=== PATIENT | female | born 1985 | race Caucasian/White ===

== ENCOUNTER 2020-07-28 13:53 | Emergency (ER) | payer BC, MEDICAID, SELFPAY ==
[2020-07-28 13:57] VITALS: BP 130/74; PULSE 115; RESP 16; TEMP 36.6; O2SAT 100; BMI 21.7
[2020-07-28 14:02] VITALS: BP 130/74; PULSE 115; RESP 16; O2SAT 100
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
--- NOTE | 2020-07-28 14:11 | CT_ITS ---
WS: [id number] CT scan of the thoracic spine. Additional two-dimensional coronal and sagittal reconstruction was per formed. 07/28/2020 Clinical Data: back pain / injury Comparison: None. DLP: 945.[address] scans at [facility] use at least one of these dose optimization techniques: automat ed exposure control; mA and/or kV adjustment per patient size (includes targeted exams where dose is matched to clinical indication); or iterative reconstruction. Findings: No compression fractures are seen. There is minimal anterior osteoarthritic spurring of the lower tho racic vertebral bodies. The spinous processes are in good alignment. The proximal ribs are not remark able. The paravertebral areas are unremarkable. CT/CT thoracic spin wo con* [id number] Impression: 1. Negative for thoracic spine fracture. 2. Minimal anterior osteoarthritic spurring from T5 through T10.
--- NOTE | 2020-07-28 14:11 | CT_ITS ---
WS: [id number] CT cervical spine. Additional two-dimensional coronal and sagittal reconstruction was performed. 07/28 Clinical Data: neck pain Comparison: None. DLP: 319.[address] scans at [facility] use at least one of these dose optimization techniques: automat ed exposure control; mA and/or kV adjustment per patient size (includes targeted exams where dose is matched to clinical indication); or iterative reconstruction. Findings: No compression fractures are seen. The disc heights are normal. The spinous processes are in good ali gnment. The odontoid is unremarkable. There is no prevertebral soft tissue swelling. The soft tissues of the cervical spine and the lung apices are not remarkable. C2-C3: No disc bulge, canal stenosis or foraminal stenosis is seen. C3-C4: No disc bulge, canal stenosis or foraminal stenosis is seen. C4-C5: No disc bulge, canal stenosis or foraminal stenosis is seen. C5-C6: No disc bulge, canal stenosis or foraminal stenosis is seen. C6-C7: No disc bulge, canal stenosis or foraminal stenosis is seen. C7-T1: No disc bulge, canal stenosis or foraminal stenosis is seen. CT/CT cervical spin wo con* [id number] Impression: Negative CT scan of the cervical spine.
[2020-07-28] MEDS: HYDROcodone-acetaminophen 5-325 mg Tablet 1 TAB PO (14:20)
--- NOTE | 2020-07-28 15:22 | PC.NURSE ---
Read and agree with assessment.
== END 2020-07-28 15:15 | disposition home or self-care (01) ==
PROVIDERS: Emergency Provider Nurse Practitioner Family; PCP Nurse Practitioner
DX: S29.012A Strain of muscle and tendon of back wall of thorax, initial encounter (principal); S16.1XXA Strain of muscle, fascia and tendon at neck level, initial encounter; X50.9XXA Other and unspecified overexertion or strenuous movements or postures, initial encounter
CPT/HCPCS: 12345; 72125; 72128; 99281; 99283

== ENCOUNTER → 2021-01-07 11:58 | Outpatient (BNVA) | payer OTHER, SELFPAY | PROVIDERS: PCP Nurse Practitioner; Visit Provider Nurse Practitioner Family | DX: Z20.822 Contact with and (suspected) exposure to COVID-19 (principal) | CPT/HCPCS: 87635 ==

== ENCOUNTER → 2021-03-02 15:59 | Outpatient (BNVA) | payer OTHER, SELFPAY | PROVIDERS: PCP Nurse Practitioner; Visit Provider Obstetrics & Gynecology | DX: Z12.4 Encounter for screening for malignant neoplasm of cervix (principal) | CPT/HCPCS: 88175 ==

== ENCOUNTER → 2021-05-16 13:09 | Outpatient (BNVA) | payer OTHER, BC, SELFPAY | PROVIDERS: PCP Nurse Practitioner; Visit Provider Nurse Practitioner Women's Health | DX: N92.6 Irregular menstruation, unspecified (principal) | CPT/HCPCS: 81025 ==

== ENCOUNTER → 2021-06-19 11:28 | Outpatient (BNVA) | payer OTHER, BC, SELFPAY | PROVIDERS: PCP Nurse Practitioner; Visit Provider Obstetrics & Gynecology | DX: Z34.80 Encounter for supervision of other normal pregnancy, unspecified trimester (principal); E03.9 Hypothyroidism, unspecified | CPT/HCPCS: 80307; 84315; 84439; 84443; 84481; 85027; 86592; 86762; 86803; 86850; 86900; 87086; 87340; 87806 ==

== ENCOUNTER → 2021-07-17 08:10 | Outpatient (BNVA) | payer OTHER, BC, MEDICAID, SELFPAY | PROVIDERS: PCP Nurse Practitioner; Visit Provider Obstetrics & Gynecology | DX: Z86.39 Personal history of other endocrine, nutritional and metabolic disease (principal); Z34.80 Encounter for supervision of other normal pregnancy, unspecified trimester | CPT/HCPCS: 84315; 84443; 87491; 87591 ==

== ENCOUNTER → 2021-08-29 11:48 | Outpatient (BNVA) | payer BC, SELFPAY | PROVIDERS: PCP Nurse Practitioner; Visit Provider Obstetrics & Gynecology | DX: Z34.80 Encounter for supervision of other normal pregnancy, unspecified trimester (principal); R79.89 Other specified abnormal findings of blood chemistry | CPT/HCPCS: 81000; 84443 ==

== ENCOUNTER → 2021-10-29 14:31 | Outpatient (BNVA) | payer BC, MEDICAID, SELFPAY | PROVIDERS: PCP Nurse Practitioner; Visit Provider Obstetrics & Gynecology | DX: Z34.80 Encounter for supervision of other normal pregnancy, unspecified trimester (principal) | CPT/HCPCS: 80307; 81000; 82950; 85027 ==

== ENCOUNTER → 2021-11-06 08:02 | Outpatient (BNVA) | payer BC, MEDICAID, SELFPAY | PROVIDERS: PCP Nurse Practitioner; Visit Provider Obstetrics & Gynecology | DX: Z34.80 Encounter for supervision of other normal pregnancy, unspecified trimester (principal) | CPT/HCPCS: 81000; 82951; 82952 ==

== ENCOUNTER → 2021-11-27 08:19 | Outpatient (BNVA) | payer BC, MEDICAID, SELFPAY | PROVIDERS: PCP Nurse Practitioner; Visit Provider Obstetrics & Gynecology | DX: Z34.80 Encounter for supervision of other normal pregnancy, unspecified trimester (principal) | CPT/HCPCS: 81000 ==

== ENCOUNTER → 2021-12-17 10:09 | Outpatient (BNVA) | payer BC, MEDICAID, SELFPAY | PROVIDERS: PCP Nurse Practitioner; Visit Provider Obstetrics & Gynecology | DX: Z34.80 Encounter for supervision of other normal pregnancy, unspecified trimester (principal) | CPT/HCPCS: 84315; 85025; 87081 ==

== ENCOUNTER 2022-01-07 06:10 | Inpatient (IN) | payer BC, MEDICAID, SELFPAY ==
[2022-01-07] VITALS (78 sets, daily range): BP systolic 98–182; BP diastolic 51–139; PULSE 58–105; RESP 16–18; TEMP 36.3–37.7; O2SAT 89–100; BMI 29.0
[2022-01-07] MEDS: lactated ringers 1,000 ML 999 ML IV ×2 (06:41→12:23)
[2022-01-07 06:47] LABS: Basophils % 0.1 %; Eosinophils # 0.1 10^3/uL (0.0-0.8); Eosinophils % 0.9 %; Hematocrit 33.7 % (37.0-47.0); Hemoglobin 11.4 g/dL (11.5-15.3); Lymphocytes # 0.8 10^3/uL (0.8-4.8); Lymphocytes % 11.2 %; Mean Corpuscular HGB Conc 33.8 g/dL (30.0-36.0); Mean Corpuscular Hemoglobin 30.1 pg (28.0-34.0); Mean Corpuscular Volume 88.9 fl (81-99); Mean Platelet Volume 11.4 fL (7.4-10.4); Monocytes # 0.5 10^3/uL (0.2-0.9); Monocytes % 7.7 %; Neutrophils # 5.35 10^3/uL (1.8-7.7); Neutrophils % 78.9 %; Nucleated Red Blood Cells % 0 %; Platelet Count 178 10^3/cmm (130-400); Red Blood Count 3.79 10^6/uL (4.1-5.3); Red Cell Distribution Width 15.8 % (12.1-15.1); White Blood Count 6.8 10^3/uL (4.0-10.0)
[2022-01-07] MEDS: oxytocin 30 UNIT/500 ML BAG IV (07:22)
--- NOTE | 2022-01-07 12:28 | ANES.PREANE2 ---
Pre-Anesthetic Assessment Height/Weight: Height 1.68 m Weight 81.647 kg Temp Pulse Resp BP 98.6 F 78 16 107/72 01/07/22 11:07 01/07/22 11:46 01/07/22 06:22 01/07/22 11:46 Preop Diagnosis: IUP Epidural Familial anesthetic complications: None Last intake: ice chips Social No alcohol and No tobacco Exam alert, oriented x 3, clear to auscultation bilaterally and regular rate & rhythm Airway Mallampati: Class III Dentition: full Pulmonary None reported CV/HEM None reported None reported Hepatic None reported GI Gastroesophageal Reflux Disease Metabolic None reported Musc/skel None reported Neuropsych None reported Anesthetic Plan ASA status: 2 Risk of > 500 ml blood loss (7ml/kg in children): No Medications/Allergies Home Medications Medication Instructions Recorded Confirmed Last Taken Type vits no.126-ferrous fum 1 tab PO DAILY tab 08/29/21 01/07/22 01/06/22 21:00 History 28 mg iron-folic acid 800 mcg tablet (Classic ) famotidine 20 mg tablet (Pepcid) 20 mg PO BID #60 tab 09/25/21 01/07/22 2 Days Ago Rx ~01/05/22 calcium carbonate 300 mg (750 mg) 300 mg PO BID PRN 10/29/21 01/07/22 Unknown History chewable tablet (Tums E-X) ferrous sulfate 325 mg (65 mg 325 mg PO DAILY #90 tab 10/31/21 01/07/22 01/06/22 09:00 Rx iron) tablet,delayed release Allergies Allergy/AdvReac Type Severity Reaction Status Date / Time metoclopramide [From Reglan] Allergy Mild skin crawls Verified 01/07/22 06:29 metronidazole [From Flagyl] Allergy Mild ADR-Vomiting, Verified 01/07/22 06:29 nausea, diarrhea Current Medications Generic Name Dose Route Start Last Admin Trade Name Freq PRN Reason Stop Dose Admin Oxytocin 30 unit in 500 mls @ 1 mls/hr 01/07/22 06:30 01/07/22 10:39 Pitocin IV 16 milliunit/min .Q24H EMMA 16 mls/hr Titration Protocol 1 MILLIUNIT/MIN PFSH Anesthesia Medical History Anxiety And PTSD--she was diagnosed at the age of 21 and has been on Lexapro and hydroxyzine in the past. She stopped medication earlier this year and states that symptoms are under control. This was managed by her primary care provider. History of hypothyroidism during 5th ; resolved No pertinent past medical history Denies diabetes, asthma, hypertension, seizures, DVT/PE PCP: None Surgical History No pertinent past surgical history Family History Denies family history of Colon cancer Ovarian cancer Diabetes Heart disease Hyperlipidemia Breast cancer Hypertension Uterine cancer Thyroid condition Stroke Female Reproductive History Date of last menstrual period: 07/12/20 : 8 Data Anesthesia : 01/07/22 06:27 Short CBC 01/07/22 Range/Units 06:27 WBC 6.8 (4.0-10.0) 10^3/uL Hgb 11.4 L (11.5-15.3) g/dL Hct 33.7 L (37.0-47.0) % MCV 88.9 (81-99) fl Plt Count 178 (130-400) 10^3/cmm Neut % (Auto) 78.9 % Neut # (Auto) 5.35 (1.8-7.7) 10^3/uL Blood Bank 01/07/22 06:27 Blood Type O Positive Rho(D) Type Positive Antibody Screen Negative Cardiac Studies: No Data to Display
--- NOTE | 2022-01-07 12:45 | P.HPUD_ITS ---
Labor & Delivery H&P Update Date of Procedure: January 07, 2022 Date H&P Performed: 12/31/21 H&P update information: I have reviewed H&P completed within last 30 days, I have examined patient prior to procedure, Changes to prior documentation as noted here and H&P is in [facility] EMR on date indicated Changes to previous documentation: Cervix is 4 to 5 cm and patient is in labor Admission Diagnosis: Preop diagnosis: IUP
--- NOTE | 2022-01-07 13:21 | ANES.PROC ---
Anesthesia Procedures Procedure/Date: 01/07/22 Epidural: Time Out Performed: Yes Consents Signed: Procedure Consent Consent: requested by attending/covering physician, from patient, risks and benefits reviewed and patient agrees to proceed Lumbar Level: L3-L4 Epidural position: sitting Epidural procedure: sterile prep of area, 1% lidocaine to numb the area, 18 g needle, negative for paresthesia passed, neg for paresthesia, test dose given, 1.5% xylocaine 1:200k epi (5 cc), 0.2% Ropivacaine bolus ml (5), placed PCEA, no systemic response, sterile dressing applied, L.U.D. no apparent complications and 0.2% Ropiavacaine @ mls/hr (13) Additional Comments: EVAN just before 4 cm threaded to just before 10 cm
[2022-01-07] MEDS: miSOPROStol 200 mcg Tablet 600 MCG PR (15:24)
--- NOTE | 2022-01-07 15:27 | P.PCNOB_ITS ---
Delivery Note: Date of delivery: January 07, 2022 - PRE-DELIVERY DIAGNOSIS: 36-year-old 8 para 6-0-1-6 at 39 weeks and 3 days Elective induction of labor for term Advanced maternal age GERD on medication Grand multiparity Anxiety-no medication POST-DELIVERY DIAGNOSIS: Vaginal delivery on 01/07/2022 PROCEDURE: Vaginal delivery on 01/07/2022 ANESTHESIA: Epidural anesthesia on 01/07/2022 DELIVERING PHYSICIAN: Sarath Meek FACOG PRE-DELIVERY COURSE: Ms. Parks is a 36-year-old 8 para 6-0-1-6 at 39 weeks and 3 days who presented to labor and delivery at 6 AM on 01/07/2022 for scheduled elective induction of labor for term . She is GBS negative and at an uncomplicated . She had no new concerns on the day of procedure. On examination her cervix was 2 cm 60% and -4 station with no contractions and a category 1 tracing. Induction was started with Pitocin started at 8:30 AM and titrated to a maximum of 20 mIU. With this she started to become uncomfortable and made cervical change to 4 cm at which point an epidural was placed. Patient was comfortable with the epidural. Artificial rupture of membranes was performed at 12:38 PM on 01/07/2022 at which point she was noted to be 5 to 6 cm, 70% and -1 station with clear fluid. She made rapid cervical change after this and was fully dilated at 2:50 PM and set up in lithotomy position ready to push. tracing was category 1. DELIVERY NOTE: She was set up in lithotomy position and was pushing effectively. She was noted to be +3 station and continued pushing well. The head delivered in ADI position, nuchal cord x1 was present and this was reduced without any difficulty. The shoulders and rest of the body followed with her next push. The baby's mouth and nose were suctioned and the baby was placed on the mother's belly. The baby was a little floppy and cord was clamped and cut after about 30 seconds and baby taken to the warmer by the RN. The placenta delivered spontaneously intact with membranes and was discarded. The fundus was noted to be firm and well contracted. The vagina and cervix were inspected and no cervical or sulcal lacerations were noted. The perineum was intact except for a first-degree vaginal laceration which was repaired with 3-0 Vicryl on an SH needle in a continuous interlocking fashion. Good hemostasis and reapproximation was obtained. Baby girl, Winter born at 3 PM on 01/07/2022 with 6/8, weighing 3825 g, 8 pounds 7 ounces, 21 inches long. Placenta was delivered spontaneously intact with membranes at 3:05 AM. Cotyledons were intact , centrally inserted umbilical cord with 3 vessels noted. Estimated blood loss -250 mL. Complications-none, both baby and mother were left to recover in a stable condition. This documentation was created by [employer] director payer software (known for inherent director payer error). Every effort was made to assure accuracy of tra nscription. Any obvious errors or omissions should be clarified with the author of the document. History History History 8 Term 7 Miscarriages/Ectopic 1 0 Living Children 7 Other History: 8, Para 7017 x 7, SAB x 1 1-->: 2005, female, (Jemima) 6 lbs 15 ozs, 40 wks, epidural, vaginal delivery, delivered by Dr Conroy, at [place], [place]. No complications 2-->2007, male,(Jeffery), 7 lbs 3 ozs, 40 wks, vaginal delivery, delivered by Dr Conroy, at [place], [place]. No complications 3-->2008, SAB at 16 wks gestation, no d&c needed 4-->2010, male,(Kathy) 7 lbs 5 ozs, 40 wks, vaginal delivery, delivered by Dr Andrés Arango, at [place], [place]. No complications 5-->2011, male,(Montgomery) 7 lbs 6 ozs, 40 wks, vaginal delivery, delivered by Dr Andrés Arango, at [place], [place]. No complications 6--> 11/26/2015, female(Philly Durant), 7 lbs 11.5 ozs, 39 wks elective induction with pitocin, vaginal delivery, delivered by Dr Yuridia Fallon, at [place], [place]. No complications 7--> 12/21/2018, Male,(Jad) 7lbs 4oz, 38-39 wks, vaginal delivery, epidural, had possible placental accreta diagnosed antepartum however delivery was uncomplicated and she had no problems. Delivered in [place], [place] at [facility]. --->[facility] notes from the doctors in [place] on 10/26/2018 were reviewed--they did an ultrasound on patient at 32 weeks which had low suspicion for placenta accreta however patient desired to deliver [place]. Follow-up ultrasound today continue to show low risk for placenta accreta and patient went on to have a normal vaginal delivery without hemorrhage or any difficulty delivering the placenta 8--> 01/07/2022, female(Winter), 8 pounds 7 ounces,, 39 weeks 3 days vaginal delivery with epidural with Dr. Meek at [facility]. First-degree vaginal tear. 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
[2022-01-07] MEDS: ibuprofen 800 mg tablet PO (20:09)
[2022-01-07] MEDS: docusate sodium 100 mg Capsule PO (20:14)
[2022-01-07] MEDS: lanolin oint 7 gm 1 APPLIC TOPICAL (20:52)
[2022-01-07] MEDS: benzocaine-menthol 78 gm Canister 1 SPRAY TOPICAL (20:53)
[2022-01-07] MEDS: HYDROcodone-acetaminophen 5-325 mg Tablet PO (21:55)
[2022-01-07] MEDS: saline nasal spray 44mL Btl 1 SPRAY NASAL (22:13)
[2022-01-08 00:45] VITALS: BP 115/77; PULSE 82; RESP 16; TEMP 36.8; O2SAT 98
[2022-01-08 04:18] VITALS: BP 110/74; PULSE 88; RESP 16; TEMP 36.9
[2022-01-08] MEDS: HYDROcodone-acetaminophen 5-325 mg Tablet PO ×2 (04:22→13:21)
[2022-01-08 04:35] LABS: Hematocrit 33.4 % (37.0-47.0); Hemoglobin 11.5 g/dL (11.5-15.3); Mean Corpuscular HGB Conc 34.4 g/dL (30.0-36.0); Mean Corpuscular Hemoglobin 30.3 pg (28.0-34.0); Mean Corpuscular Volume 87.9 fl (81-99); Mean Platelet Volume 11.4 fL (7.4-10.4); Platelet Count 173 10^3/cmm (130-400); Red Cell Distribution Width 15.5 % (12.1-15.1); White Blood Count 9.8 10^3/uL (4.0-10.0)
[2022-01-08] MEDS: prenatal vitamin Capsule 1 CAP PO (07:48)
[2022-01-08] MEDS: docusate sodium 100 mg Capsule PO ×2 (07:48→16:51)
[2022-01-08] MEDS: ibuprofen 800 mg tablet PO ×3 (07:48→22:55)
[2022-01-08 08:00] VITALS: BP 109/71; PULSE 72; RESP 16; TEMP 36.6
--- NOTE | 2022-01-08 08:45 | P.PN_ITS ---
Subjective Subjective: SUBJECTIVE: Rhoda is doing okay today. Has quite a bit of lower abdominal cramping especially when she breast-feed. Bleeding is minimal. Denies headaches, visual changes or any other problems. Is just tired and did not sleep well. States that the baby is latching and breast-feeding without any difficulty. Denies nausea, vomiting, fever, chills, shortness of breath and chest pain. OBJECTIVE/PHYSICAL EXAM: Gen.: No acute distress Heart: S1-S2 heard, regular rate and rhythm Lungs: Clear to auscultation bilaterally Abdomen: Soft, fundus firm below umbilicus Legs: No calf tenderness, trace bilateral pitting pedal edema. ASSESSMENT AND PLAN: 36-year-old 8 para 7-0-1-7 status post vaginal delivery, day #1 Continue routine care P.o. pain medication as needed IV can be discontinued after 24 hours as long as vital signs are stable Anticipate discharge home in the next 1 to 2 days as long as she is doing well. Patient may need another day in the hospital to recover from delivery. Encourage ambulation Vitals/I&O/Wt Last Vital Signs Temp 97.7 F 01/08/22 13:45 Pulse 73 01/08/22 13:45 Resp 14 01/08/22 13:45 BP 113/71 01/08/22 13:45 Pulse Ox 98 01/08/22 00:45 01/07/22 01/08/22 01/08/22 22:59 06:59 14:59 Intake Total 1072.633 / 3100.000 Output Total 1650 / 1650 950 / 2600 900 / 900 Balance -577.367 / 1450.000 -950 / 500.000 -900 / -900 Weight last 48 hrs Weight 180 lb Physical Exam Urinary Catheter Management: Grider: Cath Placed During This Visit: yes Urinary Catheter Date of Insertion: 01/07/22 Urinary Catheter Time of Insertion: 12:25 Data : 01/08/22 04:05 Attestations Medical Necessity Statement*: Patient needs to stay in the hospital for 1-2 more days to recover from delivery Coding Level of Care Code Acute Protocol Manager for Destiny Diop
[2022-01-08 13:45] VITALS: BP 113/71; PULSE 73; RESP 14; TEMP 36.5
--- NOTE | 2022-01-08 14:08 | ANE.PACU2 ---
Inpatient post-anesthesia follow up: Airway intact: Yes Vital signs: Temperature 97.7 F Pulse Rate 73 Respiratory Rate 14 Blood Pressure 113/71 Pulse Oximetry 98 Oxygen Delivery Me thod Room Air Oxygen Flow Rate Fraction of Inspir ed Oxygen Hydration adequate: Yes Nausea and vomiting: No Pain level: 1 Mental status: Baseline
[2022-01-08 22:10] VITALS: BP 114/77; PULSE 86; RESP 16; TEMP 36.8; O2SAT 98
[2022-01-09] MEDS: HYDROcodone-acetaminophen 5-325 mg Tablet PO (01:27)
[2022-01-09 04:40] VITALS: BP 123/79; PULSE 90; RESP 16; TEMP 36.8
[2022-01-09] MEDS: docusate sodium 100 mg Capsule PO (08:58)
[2022-01-09] MEDS: ibuprofen 800 mg tablet PO (08:58)
[2022-01-09] MEDS: prenatal vitamin Capsule 1 CAP PO (08:58)
[2022-01-09 10:27] VITALS: BP 96/57; PULSE 77; TEMP 36.9; O2SAT 96
--- NOTE | 2022-01-09 11:58 | PM.OBGYDC ---
Discharge Providers PULP MILL SUPERVISOR Date of Admission: 01/07/22 06:10 Date of Discharge: 01/09/22 Attending Provider at Admission: Sarath Agustin MD Attending Provider at Discharge: Sarath Agustin MD PRE-DELIVERY DIAGNOSIS: 36-year-old 8 para 6-0-1-6 at 39 weeks and 3 days Elective induction of labor for term Advanced maternal age GERD on medication Grand multiparity Anxiety-no medication POST-DELIVERY DIAGNOSIS: Vaginal delivery on 01/07/2022 PROCEDURE: Vaginal delivery on 01/07/2022 ANESTHESIA: Epidural anesthesia on 01/07/2022 DELIVERING PHYSICIAN: Sarath Meek FACOG PRE-DELIVERY COURSE: Ms. Parks is a 36-year-old 8 para 6-0-1-6 at 39 weeks and 3 days who presented to labor and delivery at 6 AM on 01/07/2022 for scheduled elective induction of labor for term .? She is GBS negative and at an uncomplicated .? She had no new concerns on the day of procedure.? On examination her cervix was 2 cm 60% and -4 station with no contractions and a category 1 tracing.? Induction was started with Pitocin started at 8:30 AM and titrated to a maximum of 20 mIU.? With this she started to become uncomfortable and made cervical change to 4 cm at which point an epidural was placed.? Patient was comfortable with the epidural.? Artificial rupture of membranes was performed at 12:38 PM on 01/07/2022 at which point she was noted to be 5 to 6 cm, 70% and -1 station with clear fluid.? She made rapid cervical change after this and was fully dilated at 2:50 PM and set up in lithotomy position ready to push.? tracing was category 1. DELIVERY? NOTE: She was set up in lithotomy position and was pushing effectively. She was noted to be? +3 station and continued pushing well. The head delivered in ADI position, nuchal cord x1 was present and this was reduced without any difficulty. The shoulders and rest of the body followed with her next push. The baby's mouth and nose were suctioned and the baby was placed on the mother's belly.? The baby was a little floppy and cord was clamped and cut after about 30 seconds and baby taken to the warmer by the RN.? The placenta delivered spontaneously intact with membranes and was discarded. The fundus was noted to be firm and well contracted. The vagina and cervix were inspected and no cervical or sulcal lacerations were noted.? The perineum was intact except for a first-degree vaginal laceration which was repaired with 3-0 Vicryl on an SH needle in a continuous interlocking fashion.? Good hemostasis and reapproximation was obtained. Baby girl, Winter born at 3 PM on 01/07/2022 with 6/8, weighing 3825 g, 8 pounds 7 ounces, 21 inches long. Placenta was delivered spontaneously intact with membranes at 3:05 AM. Cotyledons were intact , centrally inserted umbilical cord with 3 vessels noted. Estimated blood loss -250 mL. Complications-none, both baby and mother were left to recover in a stable condition HOSPITAL COURSE: She underwent an uncomplicated vaginal delivery on 01/07/2022. She did well on day 0 and was ambulating well, tolerating regular diet, voiding freely, passing flatus. She was breast-feeding without difficulty and bonding well with her daughter. Pain was well-controlled with by mouth pain medication. She denied nausea, vomiting, fever, chills, shortness of breath, leg pain. She had moderate vaginal bleeding. On day #1 she continued to do well with stable vital signs and stable hemoglobin at 11.5. She continued to do well on day #2 and had no new complaints. Nurses noted that she had a bit of a flat affect and director of social services consult was called. Multiple conversations were had with patient and she stated that she was doing well and felt safe in her relationship and felt safe going back home. public services librarian interviewed patient and she was cleared by them. She denies any depressive symptoms. She was discharged home on day 2 in a stable condition. Warning signs for endometritis, mastitis, DVT/PE were reviewed with her. Post delivery activity restrictions were also reviewed with her at all her questions were answered to her satisfaction. Undecided about what she wants to use for contraception for EXAM AT DISCHARGE: Gen.: No acute distress Heart: S1-S2 heard, regular rate and rhythm Lungs: Clear to auscultation bilaterally Abdomen: Soft, fundus firm below umbilicus, Legs: No calf tenderness, trace bilateral pitting pedal edema. CONDITION AT DISCHARGE: Stable This documentation was created by [employer] plant operator/shift supervisor software (known for inherent plant operator/shift supervisor error). Every effort was made to assure accuracy of plant operator/shift supervisor. Any obvious errors or omissions should be clarified with the author of the document. Primary Care Provider: MILVIA Dougherty Reason for Visit Reason for Visit: INDUCTION OF LABOR Information Peripartum Data: Delivery Method: Vaginal Physical Exam Urinary Catheter Management: Grider: Cath Placed During This Visit: yes Urinary Catheter Date of Insertion: 01/07/22 Urinary Catheter Time of Insertion: 12:25 History History History 8 Term 7 Miscarriages/Ectopic 1 0 Living Children 7 Other History: 8, Para 7017 x 7, SAB x 1 1-->: 2005, female, (Jemima) 6 lbs 15 ozs, 40 wks, epidural, vaginal delivery, delivered by Dr Conroy, at [place], [place]. No complications 2-->2007, male,(Jeffery), 7 lbs 3 ozs, 40 wks, vaginal delivery, delivered by Dr Conroy, at [place], [place]. No complications 3-->2008, SAB at 16 wks gestation, no d&c needed 4-->2010, male,(Kathy) 7 lbs 5 ozs, 40 wks, vaginal delivery, delivered by Dr Andrés Arango, at [place], [place]. No complications 5-->2011, male,([place]) 7 lbs 6 ozs, 40 wks, vaginal delivery, delivered by Dr Andrés Arango, at [place], [place]. No complications 6--> 11/26/2015, female(Philly Durant), 7 lbs 11.5 ozs, 39 wks elective induction with pitocin, vaginal delivery, delivered by Dr Yuridia Fallon, at [place], [place]. No complications 7--> 12/21/2018, Male,(Jad) 7lbs 4oz, 38-39 wks, vaginal delivery, epidural, had possible placental accreta diagnosed antepartum however delivery was uncomplicated and she had no problems. Delivered in [place], [place] at [facility]. --->[facility] notes from the doctors in [place] on 10/26/2018 were reviewed--they did an ultrasound on patient at 32 weeks which had low suspicion for placenta accreta however patient desired to deliver [place]. Follow-up ultrasound today continue to show low risk for placenta accreta and patient went on to have a normal vaginal delivery without hemorrhage or any difficulty delivering the placenta 8--> 01/07/2022, female(Winter), 8 pounds 7 ounces,, 39 weeks 3 days vaginal delivery with epidural with Dr. Meek [place] [facility] [place]. First-degree vaginal tear. Discharge Data Studies Completed and Pending Laboratory Results WBC 9.8 10^3/uL (4.0-10.0) 01/08/22 04:05 RBC 3.80 10^6/uL (4.1-5.3) L 01/08/22 04:05 Hgb 11.5 g/dL (11.5-15.3) 01/08/22 04:05 Hct 33.4 % (37.0-47.0) L 01/08/22 04:05 MCV 87.9 fl (81-99) 01/08/22 04:05 MCH 30.3 pg (28.0-34.0) 01/08/22 04:05 MCHC 34.4 g/dL (30.0-36.0) 01/08/22 04:05 RDW 15.5 % (12.1-15.1) H 01/08/22 04:05 Plt Count 173 10^3/cmm (130-400) 01/08/22 04:05 MPV 11.4 fL (7.4-10.4) H 01/08/22 04:05 Neut % (Auto) 78.9 % 01/07/22 06: Lymph % (Auto) 11.2 % 01/07/22 06: Garfield % (Auto) 7.7 % 01/07/22 06:27 Eos % (Auto) 0.9 % 01/07/22 06:27 Baso % (Auto) 0.1 % 01/07/22 06:27 Neut # (Auto) 5.35 10^3/uL (1.8-7.7) 01/07/22 06:27 Lymph # (Auto) 0.8 10^3/uL (0.8-4.8) 01/07/22 06:27 Garfield # (Auto) 0.5 10^3/uL (0.2-0.9) 01/07/22 06:27 Eos # (Auto) 0.1 10^3/uL (0.0-0.8) 01/07/22 06:27 Baso # (Auto) 0.0 10^3/uL (0.0-0.1) 01/07/22 06:27 Nucleated RBC % (auto) 0 % 01/07/22 06:27 Nucleated RBCs # 0.0 /100WBC 01/07/22 06:27 Blood Type O Positive 01/07/22 06:27 Rho(D) Type Positive 01/07/22 06:27 Antibody Screen Negative 01/07/22 06:27 Vitals Last Vital Signs Temp 98.5 F 01/09/22 10:27 Pulse 77 01/09/22 10:27 Resp 16 01/09/22 04:40 BP 96/57 01/09/22 10:27 Pulse Ox 96 01/09/22 10:27 Discharge Plan Discharge Patient Disposition: Home Condition: Stable Prescriptions: New ibuprofen 800 mg tablet 800 mg PO Q8H Qty: 30 0RF docusate sodium 100 mg Capsule 100 mg PO BID PRN (Reason: constipation) Qty: 30 0RF Continued Classic 28 mg iron- 800 mcg tablet 1 tab PO DAILY 0RF famotidine [Pepcid] 20 mg tablet 20 mg PO BID Qty: 60 3RF calcium carbonate [Tums E-X] 300 mg (750 mg) tablet,chewable 300 mg PO BID PRN (Reason: Heartburn) 0RF Discontinued ferrous sulfate 325 mg (65 mg iron) tablet,delayed release (DR/EC) 325 mg PO DAILY Qty: 90 1RF Discharge Orders: Discharge Order (Routine); Ordered 01/09/22 Ordered By: Sarath Agustin Referrals: Sarath Agustin MD [Physician] - 02/19/22 9:00 am (6 week post- ) Discharge Diet: Regular Discharge Activity: Limit activity as instructed Patient Instructions: Depression (DC), Bleeding (DC), Preeclampsia and Eclampsia After Delivery (GEN), OB Discharge Report, OB Food/Drug Interaction Guide, Opioid Safety, OB Home Care, OB Vaginal Deliveries - [facility] Activity Restrictions/Additional Instructions: No heavy lifting for 6 weeks, pelvic rest for 6 weeks Follow-up with Dr. Meek for 6-week visit Emergency room precautions reviewed Discharge Attestations PULP MILL SUPERVISOR Time Spent in Discharge Care*: greater than 30 min Coding Level of Care Code Acute Baggage Porter for Destiny Diop
[2022-01-09 13:20] VITALS: BP 128/75; PULSE 78; RESP 17; TEMP 36.8; O2SAT 99
== END 2022-01-09 13:30 | disposition home or self-care (01) | DRG 807 ==
LOC: OPOB 06:11 → OBGYN 06:11
PROVIDERS: Admitting Provider Obstetrics & Gynecology; PCP Nurse Practitioner; Visit Provider Obstetrics & Gynecology
DX: O99.62 Diseases of the digestive system complicating childbirth (principal); Z37.0 Single live birth; O99.344 Other mental disorders complicating childbirth; F41.9 Anxiety disorder, unspecified; O99.334 Smoking (tobacco) complicating childbirth; F17.210 Nicotine dependence, cigarettes, uncomplicated; Z3A.39 39 weeks gestation of pregnancy; F43.10 Post-traumatic stress disorder, unspecified; O70.0 First degree perineal laceration during delivery
CPT/HCPCS: 36415; 51702; 59025; 59409; 85025; 85027; 86850; 86900; J2795

== ENCOUNTER 2024-09-27 09:22 | Emergency (ER) | payer BC, MEDICAID, SELFPAY ==
--- NOTE | 2024-09-27 09:26 | XRR_ITS ---
PROCEDURE INFORMATION: Exam: XR Right Foot Exam date and time: 09/27/2024 10:19 AM Age: 38 years old Clinical indication: Injury or trauma; Other: Stepped on nail; Puncture; Foot; Right; Foreign body involvement not specified TECHNIQUE: Imaging protocol: Radiologic exam of the right foot. Views: 3 or more views. COMPARISON: No relevant prior studies available. FINDINGS: Bones/joints: Normal. No radiopaque foreign material following puncture wound. No osseous abnormality. Soft tissues: Normal. XR/XR foot RT min 3V* [id number] IMPRESSION: No acute findings.
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
[2024-09-27 09:43] VITALS: BP 136/97; PULSE 85; TEMP 36.7; O2SAT 100; BMI 26.6
[2024-09-27] MEDS: tetanus-dipt-pertussis 0.5 mL SDV IM (10:24)
[2024-09-27] MEDS: ceFAZolin 1,000 MG in water for injection-sterile 2.5 ML 2.5 MG IM (10:26)
[2024-09-27 10:37] VITALS: BP 136/97; PULSE 81; O2SAT 99
[2024-09-27 10:39] VITALS: BP 136/97; PULSE 90; O2SAT 99
== END 2024-09-27 11:00 | disposition home or self-care (01) ==
PROVIDERS: Emergency Provider Physician Assistant; PCP Nurse Practitioner
DX: S91.331A Puncture wound without foreign body, right foot, initial encounter (principal); W45.0XXA Nail entering through skin, initial encounter; Z23 Encounter for immunization
CPT/HCPCS: 73630; 90471; 90715; 96372; 99284; J0690